=== PATIENT | male | born 1940 | race Hispanic/Latino ===

== ENCOUNTER 2018-11-03 17:23 | Emergency (ER) | payer MEDICARE ==
--- NOTE | 2018-11-03 19:36 | Emergency Department Report ---
ED General Adult HPI - General Chief complaint: Syncope Stated complaint: SYNCOPE Time Seen by Provider: 11/03/18 19:27 Source: patient, family, EMS (ems notes not available at time of chart dictation), RN notes reviewed Mode of arrival: Stretcher Limitations: Other (the patient does not remember what happened) - History of Present Illness Initial comments: This is a 78-year-old gentleman. The patient is not known to this provider previously. He recently moved here from [place]. He has followed with the [facility] in the past. He does not have a local primary care doctor. 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 The patient is brought to the hospital by EMS and his . As per his , they were driving, and the patient was in his usual state of health, when he lost consciousness, became unresponsive for 20 minutes. This is never happened before. The patient denies physical pain. He does not recall the event. The patient versus compliance with his medications. He is not sure if he's had any medication changes, but he does not believe so. He denies headache, neck pain, chest pain, abdominal pain, shortness of breath, hematemesis, bright red blood per rectum and urinary symptoms. He is back to his baseline. He has no complaints at this time. -: Sudden, minutes(s) (20) Consistency: now resolved Improves with: none Worsens with: none - Related Data Allergies Allergy/AdvReac Type Severity Reaction Status Date / Time No Known Allergies Allergy Unverified 11/03/18 19:06 ED Review of Systems ROS: Stated complaint: SYNCOPE Other details as noted in HPI Constitutional: denies: fever Eyes: denies: eye discharge ENT: denies: epistaxis Respiratory: denies: cough Cardiovascular: syncope. denies: chest pain Gastrointestinal: denies: abdominal pain, hematemesis, melena, hematochezia Musculoskeletal: denies: back pain, arthralgia Skin: lesions (chronic lesions noted on the lower extremities, not a new, worsening or different) Neurological: denies: headache, numbness, paresthesias ED Past Medical Hx - Past Medical History Previous Medical History?: Yes Hx CVA: Yes Hx Diabetes: Yes Hx Seizures: Yes Hx Kidney Stones: Yes Additional medical history: Skin Cancer, shingles, prostate, erectile dysfunction, hearing impairment, high cholesterol - Surgical History Past Surgical History?: Yes Additional Surgical History: partial right second toe amputation, skin cancer removal - Social History Smoking Status: Never Smoker Substance Use Type: None ED Physical Exam - General Limitations: No Limitations General appearance: alert, in no apparent distress - Head Head exam: Present: atraumatic, normocephalic - Eye Eye exam: Present: normal appearance, EOMI, other (visual acuity intact to finger counting, color perception, reading at a close distance). Absent: nystagmus - ENT ENT exam: Present: normal exam, normal orophraynx, mucous membranes moist, normal external ear exam - Neck Neck exam: Present: normal inspection, full ROM. Absent: tenderness, meningismus - Respiratory Respiratory exam: Present: normal lung sounds bilaterally. Absent: respiratory distress - Cardiovascular Cardiovascular Exam: Present: regular rate, normal rhythm, normal heart sounds. Absent: bradycardia, tachycardia, irregular rhythm, systolic murmur, diastolic murmur, rubs, gallop - GI/Abdominal GI/Abdominal exam: Present: soft. Absent: distended, tenderness, guarding, rebound, rigid, pulsatile mass - Rectal Rectal exam: Present: deferred - Extremities Exam Extremities exam: Present: normal inspection (Extraocular movements intact. Tongue midline. No facial droop. Facial sensation intact to light touch in the V1, V2, V3 distribution bilaterally. 5 and 5 strength in 4 extremities.. Sensation is intact to light touch in 4 extremities.), full ROM (chronic venous stasis changes noted), pedal edema, other (2+ pulses noted in the bilateral upper, lower extremities. Compartments soft. No long bony tenderness. The pelvis is stable.). Absent: calf tenderness - Back Exam Back exam: Present: normal inspection, full ROM. Absent: tenderness, CVA tenderness (R), CVA tenderness (L), paraspinal tenderness, vertebral tenderness - Neurological Exam Neurological exam: Present: alert, oriented X3, other (Extraocular movements intact. Tongue midline. No facial droop. Facial sensation intact to light touch in the V1, V2, V3 distribution bilaterally. 5 and 5 strength in 4 extremities.. Sensation is intact to light touch in 4 extremities.). Absent: motor sensory deficit - Psychiatric Psychiatric exam: Present: anxious - Skin Skin exam: Present: warm, dry ED Course Vital Signs 11/03/18 11/03/18 11/03/18 18:08 19:00 22:01 Temperature 97.6 F 98 F Pulse Rate 65 86 65 Respiratory 16 14 13 Rate Blood Pressure 122/71 130/73 Blood Pressure 141/79 [Left] O2 Sat by Pulse 100 98 Oximetry 11/03/18 11/04/18 23:01 00:01 Temperature Pulse Rate 61 67 Respiratory 13 14 Rate Blood Pressure 134/73 134/73 Blood Pressure [Left] O2 Sat by Pulse 98 97 Oximetry - Reevaluation(s) Reevaluation #1: 11/03/18 19:59 Differential diagnosis, including not limited to: Orthostasis, vagal event, structural cardiac disease, intracranial hemorrhage, electrolyte derangement, thyroid derangement, pneumonia, urinary tract infection, intra-abdominal hemorrhage Assessment and plan: 78-year-old man, not tachycardic, not hypoxic, on systemic anticoagulation, with painless loss of consciousness for 20 minutes, now resolved. The patient is clinically sober, afebrile, with reassuring vital signs, with a Vish Coma Scale of 15, with an NIH score of 0. He has no physical pain at this time. We will obtain screening laboratory studies, CT scan of the brain, CT scan of the abdomen and pelvis, x-ray of the chest, urinalysis, placed the patient on a cafeteria monitor, and observed. We will reassess once his data points have resulted. Reevaluation #2: 11/04/18 02:32 The patient has been reassessed multiple times while here in the department. His vital signs have remained unremarkable. His neurologic examination has remained unremarkable and unchanged. Objective laboratory testing unremarkable. CT scan of the brain, x-ray of the chest, CT scan of the abdomen and pelvis negative for acute significant disease, multiple incidental nonemergent findings noted. The patient has been observed here for over 9 hours without clinical decompensation or recurrent event. His vital signs have been stable. I had an extensive discussion with both the patient, and his significant other. The p atient and family endorse a strong desire to be discharged, and they endorse a desire to closely follow up with an outpatient physician. They indicate that they are reliable to follow-up. Patient and family concerned about risks of hospitalization, including delirium, slip and fall, DVT, hospital-acquired diarrhea. We discussed risks, benefits and alternatives of hospitalization versus discharge and close outpatient follow-up. Through shared decision making, we agreed to discharge the patient, and he indicates he will closely follow up as an outpatient. He was given copies of his CT scan reports, laboratory studies, and EKG. He states he is reliable to closely follow-up ED Medical Decision Making - Lab Data Result diagrams: 11/03/18 19:39 11/03/18 19:39 Vital Signs 11/03/18 11/03/18 18:08 19:00 Temperature 97.6 F 98 F Pulse Rate 65 86 Respiratory 16 14 Rate Blood Pressure 122/71 Blood Pressure 141/79 [Left] O2 Sat by Pulse 100 Oximetry Sodium: 138 Potassium: 5 Chloride: 98 CO2: 27 BUN: 21 Creatinine: 1.3 Glucose: 123. Lab Results 11/03/18 11/03/18 11/03/18 Range/Units 19:39 19:39 19:39 WBC 12.9 H (4.5-11.0) K/mm3 RBC 4.39 (3.65-5.03) M/mm3 Hgb 14.1 (11.8-15.2) gm/dl Hct 41.6 (35.5-45.6) % MCV 95 H (84-94) fl MCH 32 (28-32) pg MCHC 34 (32-34) % RDW 12.5 L (13.2-15.2) % Plt Count 221 (140-440) K/mm3 Lymph % (Auto) 13.5 (13.4-35.0) % [place] % (Auto) 4.4 (0.0-7.3) % Eos % (Auto) 0.5 (0.0-4.3) % Baso % (Auto) 0.3 (0.0-1.8) % Lymph # 1.7 (1.2-5.4) K/mm3 [place] # 0.6 (0.0-0.8) K/mm3 Eos # 0.1 (0.0-0.4) K/mm3 Baso # 0.0 (0.0-0.1) K/mm3 Seg Neutrophils % 81.3 H (40.0-70.0) % Seg Neutrophils # 10.5 H (1.8-7.7) K/mm3 Sodium 137 (137-145) mmol/L Potassium 3.7 (3.6-5.0) mmol/L Chloride 99.3 (98-107) mmol/L Carbon Dioxide 27 (22-30) mmol/L Anion Gap 14 mmol/L BUN 21 H (9-20) mg/dL Creatinine 1.3 (0.8-1.5) mg/dL Estimated GFR 54 ml/min BUN/Creatinine Ratio 16 % Glucose 123 H (75-100) mg/dL Calcium 9.1 (8.4-10.2) mg/dL Magnesium 1.90 (1.7-2.3) mg/dL Total Bilirubin 0.30 (0.1-1.2) mg/dL AST 16 (5-40) units/L ALT 15 (7-56) units/L Alkaline Phosphatase 137 H (35-129) units/L Total Creatine Kinase 69 (55-170) units/L Troponin T 0.010 (0.00-0.029) ng/mL Total Protein 6.7 (6.3-8.2) g/dL Albumin 3.6 L (3.9-5) g/dL Albumin/Globulin Ratio 1.2 % TSH (0.270-4.200) mlU/mL Free T4 1.12 (0.76-1.46) ng/dL 11/03/18 Range/Units 19:39 WBC (4.5-11.0) K/mm3 RBC (3.65-5.03) M/mm3 Hgb (11.8-15.2) gm/dl Hct (35.5-45.6) % MCV (84-94) fl MCH (28-32) pg MCHC (32-34) % RDW (13.2-15.2) % Plt Count (140-440) K/mm3 Lymph % (Auto) (13.4-35.0) % [place] % (Auto) (0.0-7.3) % Eos % (Auto) (0.0-4.3) % Baso % (Auto) (0.0-1.8) % Lymph # (1.2-5.4) K/mm3 [place] # (0.0-0.8) K/mm3 Eos # (0.0-0.4) K/mm3 Baso # (0.0-0.1) K/mm3 Seg Neutrophils % (40.0-70.0) % Seg Neutrophils # (1.8-7.7) K/mm3 Sodium (137-145) mmol/L Potassium (3.6-5.0) mmol/L Chloride (98-107) mmol/L Carbon Dioxide (22-30) mmol/L Anion Gap mmol/L BUN (9-20) mg/dL Creatinine (0.8-1.5) mg/dL Estimated GFR ml/min BUN/Creatinine Ratio % Glucose (75-100) mg/dL Calcium (8.4-10.2) mg/dL Magnesium (1.7-2.3) mg/dL Total Bilirubin (0.1-1.2) mg/dL AST (5-40) units/L ALT (7-56) units/L Alkaline Phosphatase (35-129) units/L Total Creatine Kinase (55-170) units/L Troponin T (0.00-0.029) ng/mL Total Protein (6.3-8.2) g/dL Albumin (3.9-5) g/dL Albumin/Globulin Ratio % TSH 3.020 (0.270-4.200) mlU/mL Free T4 (0.76-1.46) ng/dL Lab Results 11/03/18 11/03/18 11/03/18 Range/Units 19:39 19:39 19:39 WBC 12.9 H (4.5-11.0) K/mm3 RBC 4.39 (3.65-5.03) M/mm3 Hgb 14.1 (11.8-15.2) gm/dl Hct 41.6 (35.5-45.6) % MCV 95 H (84-94) fl MCH 32 (28-32) pg MCHC 34 (32-34) % RDW 12.5 L (13.2-15.2) % Plt Count 221 (140-440) K/mm3 Lymph % (Auto) 13.5 (13.4-35.0) % [place] % (Auto) 4.4 (0.0-7.3) % Eos % (Auto) 0.5 (0.0-4.3) % Baso % (Auto) 0.3 (0.0-1.8) % Lymph # 1.7 (1.2-5.4) K/mm3 [place] # 0.6 (0.0-0.8) K/mm3 Eos # 0.1 (0.0-0.4) K/mm3 Baso # 0.0 (0.0-0.1) K/mm3 Seg Neutrophils % 81.3 H (40.0-70.0) % Seg Neutrophils # 10.5 H (1.8-7.7) K/mm3 Sodium 137 (137-145) mmol/L Potassium 3.7 (3.6-5.0) mmol/L Chloride 99.3 (98-107) mmol/L Carbon Dioxide 27 (22-30) mmol/L Anion Gap 14 mmol/L BUN 21 H (9-20) mg/dL Creatinine 1.3 (0.8-1.5) mg/dL Estimated GFR 54 ml/min BUN/Creatinine Ratio 16 % Glucose 123 H (75-100) mg/dL Calcium 9.1 (8.4-10.2) mg/dL Magnesium 1.90 (1.7-2.3) mg/dL Total Bilirubin 0.30 (0.1-1.2) mg/dL AST 16 (5-40) units/L ALT 15 (7-56) units/L Alkaline Phosphatase 137 H (35-129) units/L Total Creatine Kinase 69 (55-170) units/L Troponin T 0.010 (0.00-0.029) ng/mL Total Protein 6.7 (6.3-8.2) g/dL Albumin 3.6 L (3.9-5) g/dL Albumin/Globulin Ratio 1.2 % TSH (0.270-4.200) mlU/mL Free T4 1.12 (0.76-1.46) ng/dL 11/03/18 Range/Units 19:39 WBC (4.5-11.0) K/mm3 RBC (3.65-5.03) M/mm3 Hgb (11.8-15.2) gm/dl Hct (35.5-45.6) % MCV (84-94) fl MCH (28-32) pg MCHC (32-34) % RDW (13.2-15.2) % Plt Count (140-440) K/mm3 Lymph % (Auto) (13.4-35.0) % [place] % (Auto) (0.0-7.3) % Eos % (Auto) (0.0-4.3) % Baso % (Auto) (0.0-1.8) % Lymph # (1.2-5.4) K/mm3 [place] # (0.0-0.8) K/mm3 Eos # (0.0-0.4) K/mm3 Baso # (0.0-0.1) K/mm3 Seg Neutrophils % (40.0-70.0) % Seg Neutrophils # (1.8-7.7) K/mm3 Sodium (137-145) mmol/L Potassium (3.6-5.0) mmol/L Chloride (98-107) mmol/L Carbon Dioxide (22-30) mmol/L Anion Gap mmol/L BUN (9-20) mg/dL Creatinine (0.8-1.5) mg/dL Estimated GFR ml/min BUN/Creatinine Ratio % Glucose (75-100) mg/dL Calcium (8.4-10.2) mg/dL Magnesium (1.7-2.3) mg/dL Total Bilirubin (0.1-1.2) mg/dL AST (5-40) units/L ALT (7-56) units/L Alkaline Phosphatase (35-129) units/L Total Creatine Kinase (55-170) units/L Troponin T (0.00-0.029) ng/mL Total Protein (6.3-8.2) g/dL Albumin (3.9-5) g/dL Albumin/Globulin Ratio % TSH 3.020 (0.270-4.200) mlU/mL Free T4 (0.76-1.46) ng/dL - EKG Data -: EKG Interpreted by Ok EKG shows normal: sinus rhythm Rate: normal - EKG Data When compared to previous EKG there are: previous EKG unavailable 11/03/18 20:01 sinus 66 bpm, not a stemi KS interval prolonged, 274 ms. QTC prolonged, 530 ms. Borderline left ventricular hypertrophy. This is an abnormal EKG. There is no prior for comparison. This EKG is not consistent with ST elevation myocardial infarction. - Radiology Data Radiology results: pending, report reviewed, image reviewed Noncontrast CT scan of the brain is negative for acute disease. CT scan of the abdomen and pelvis negative for acute disease/hematoma. Multiple incidental findings noted. X-ray of the chest negative for acute disease. Print Report Referring Physician: DEDE TELLO Patient Name: RAHEEM CORNELL Date of : 1940 Sex: Male Report Date: 2018-11-03 Report Status: Finalized Findings [address] [address] XRay Report Signed Patient: RAHEEM CORNELL MR#: [id number] : 1940 Acct:[id number] Age/Sex: 78 / M ADM Date: 11/03/18 Loc: ED Attending Dr: Ordering Physician: DEDE TELLO MD Date of Service: 11/03/18 Procedure(s): XR chest 1V ap Accession Number(s): [id number] cc: DEDE TELLO MD Fluoro Time In Minutes: PROCEDURE: XR CHEST 1V AP TECHNIQUE: Chest radiograph single view. HISTORY: syncopwe FINDINGS: Single frontal view of the chest was acquired. The heart is mildly large. There is no evidence of congestive heart failure. There is no consolidative infiltrate. IMPRESSION: The heart is mildly large. Otherwise, no active disease in the chest This document is electronically signed by Glen Olmedo MD., November 03 2018 08:23:16 PM ET Transcribed By: ROSEMARY Dictated By: GLEN OLMEDO MD Electronically Authenticated By: GLEN OLMEDO MD Signed Date/Time: 11/03/182148 DD/ 19 TD/TT: 11/03/182019 Print Report Referring Physician: DEDE TELLO Patient Name: RAHEEM CORNELL Date of : 1940 Sex: Male Report Date: 2018-11-03 Report Status: Finalized Findings [address] [address] XRay Report Signed Patient: RAHEEM CORNELL MR#: [id number] : 1940 Acct:[id number] Age/Sex: 78 / M ADM Date: 11/03/18 Loc: ED Attending Dr: Ordering Physician: DEDE TELLO MD Date of Service: 11/03/18 Procedure(s): XR chest 1V ap Accession Number(s): [id number] cc: DEDE TELLO MD Fluoro Time In Minutes: PROCEDURE: XR CHEST 1V AP TECHNIQUE: Chest radiograph single view. HISTORY: syncopwe FINDINGS: Single frontal view of the chest was acquired. The heart is mildly large. There is no evidence of congestive heart failure. There is no consolidative infiltrate. IMPRESSION: The heart is mildly large. Otherwise, no active disease in the chest This document is electronically signed by Glen Olmedo MD., November 03 2018 08:23:16 PM ET Transcribed By: ROSEMARY Dictated By: GLEN OLMEDO MD Electronically Authenticated By: GLEN OLMEDO MD Signed Date/Time: 11/03/182148 DD/ 19 TD/TT: 11/03/182019 Print Report Referring Physician: DEDE TELLO Patient Name: RAHEEM CORNELL Date of : 1940 Sex: Male Report Date: 2018-11-03 Report Status: Finalized Findings [facility] [address] [place] [address] XRay Report Signed Patient: RAHEEM CORNELL MR#: [id number] : 1940 Acct:[id number] Age/Sex: 78 / M ADM Date: 11/03/18 Loc: ED Attending Dr: Ordering Physician: DEDE TELLO MD Date of Service: 11/03/18 Procedure(s): XR chest 1V ap Accession Number(s): [id number] cc: DEDE TELLO MD Fluoro Time In Minutes: PROCEDURE: XR CHEST 1V AP TECHNIQUE: Chest radiograph single view. HISTORY: syncopwe FINDINGS: Single frontal view of the chest was acquired. The heart is mildly large. There is no evidence of congestive heart failure. There is no consolidative infiltrate. IMPRESSION: The heart is mildly large. Otherwise, no active disease in the chest This document is electronically signed by Glen Olmedo MD., November 03 2018 0 8:23:16 PM ET Transcribed By: ROSEMARY Dictated By: GLEN OLMEDO MD Electronically Authenticated By: GLEN OLMEDO MD Signed Date/Time: 11/03/182148 DD/ 19 TD/TT: 11/03/182019 Critical care attestation.: If time is entered above; I have spent that time in minutes in the direct care of this critically ill patient, excluding procedure time. ED Disposition Clinical Impression: History of syncope Disposition: DC-01 TO HOME OR SELFCARE Is pt being admited?: No Does the pt Need Aspirin: No Condition: Stable Additional Instructions: Do not drive or operate motor vehicles next 6 months, or until cleared by a primary care doctor or grout pump operator. Follow up with a primary care doctor or grout pump operator within the next 3-5 days. Contact any of the listed local card iology practices to arrange close outpatient follow-up. When contacting the cardiology groups, please inform the office staff that he was seen in the emergency room for syncope/loss of consciousness, and close/urgent outpatient follow-up is recommended and advised. Please continue current outpatient medications. CT scan of the abdomen and pelvis did not demonstrate any acute or emergent condition that would require hospitalization, but it did demonstrate multiple nonemergent incidental findings which should be followed up by her primary care doctor within the next month. Please have your primary care doctor reviewed the CT scan report that you were provided, and have them follow up on the nonemergent incidental findings. Please return to the emergency room right away with new, worsening or different symptoms, or symptoms not present on the initial emergency room evaluation. Referrals: DARI GONZALEZ MD [Staff Physician] - 3-5 Days EDIHT MANCERA MD [Staff Physician] - 3-5 Days [facility] [Provider Group] - 3-5 Days [facility] [Provider Group] - 3-5 Days
--- NOTE | 2018-11-03 21:49 | XRay Report ---
PROCEDURE: XR CHEST 1V AP TECHNIQUE: Chest radiograph single view. HISTORY: syncopwe FINDINGS: Single frontal view of the chest was acquired. The heart is mildly large. There is no evide nce of congestive heart failure. There is no consolidative infiltrate. IMPRESSION: The heart is mildly large. Otherwise, no active disease in the chest This document is electronically signed by Glen Olmedo MD., November 03 2018 08:23:16 PM ET
--- NOTE | 2018-11-04 01:49 | Cat Scan Report ---
PROCEDURE: CT HEAD/BRAIN WO CON TECHNIQUE: Computerized tomography of the head was performed without contrast material. CT DOSE LENGTH PRODUCT: 920.5 mGycm HISTORY: Syncope COMPARISONS: None . FINDINGS: Brain: There is no evidence of intracranial hemorrhage. No parenchymal hemorrhage is seen. No mass lesions or mass effect is identified. No abnormal extra-axial fluid collections or masses are seen. There is some decreased density seen in the periventricular white matter without mass effect. This i s fairly symmetric and does not exhibit any mass effect consistent with gliosis probably on the basis of microvascular disease or white matter changes of aging. Ventricles: The ventricles, sulcal pattern and fissures are prominent consistent with atrophy. Bone Windows: No evidence of fracture. Paranasal sinuses: Visualized portions are clear.. Mastoid air cells: Clear. IMPRESSION: There is evidence of atrophy and gliosis. No acute intracranial abnormalities are seen. . This document is electronically signed by Paul Murguia MD., November 03 2018 09:11:09 PM ET
--- NOTE | 2018-11-04 01:49 | Cat Scan Report ---
PROCEDURE: CT ABDOMEN PELVIS WO CON TECHNIQUE: Computerized axial tomography of the abdomen and pelvis was performed without intravenous contrast. This study is performed without intravascular contrast material and its sensitivity for ab dominal and pelvic pathology, including neoplasms, inflammation, abscess, free fluid, thrombosis, art erial dissection and infarction, is reduced compared with a contrast enhanced study. CT DOSE LENGTH PRODUCT: 1616.9 mGycm HISTORY: syncope on pradaxa ? rph COMPARISONS: None . FINDINGS: Lower Lung gan: Calcifications are seen in the hernandez of the coronary arteries indicating atherosc lerotic disease. There may also be coronary artery stents in place. Correlation with prior procedural history recommended. Minimal dependent atelectasis visualized. Lung bases otherwise are clear. Upper Abdomen: There is a 2.6 x 2.6 cm heterogeneous mildly irregular shape low density nodule in th e right lobe of the liver superiorly laterally. This is visualized on image 26 series 2. There is als o a nonspecific 6 mm low-density nodule in the right lobe of the liver posteriorly laterally. The porsha er is otherwise unremarkable. Gallbladder showed no abnormalities. The adrenal glands, the pancreas a nd spleen are unremarkable. Kidneys, Ureters and Urinary bladder: There is a nonobstructing 7.5 mm calculus in the lower third o f the right kidney. There is also a nonobstructing 3 mm calculus in the midportion of the right kidne y. No other renal calculi are seen on the right or left. Extrarenal pelvis of the kidneys present fausto aterally, normal variant. Ureters and urinary bladder are unremarkable. Retroperitoneum: Atherosclerotic changes are seen in the abdominal aorta. No aneurysm is visualized. Nonspecific subcentimeter lymph nodes are seen in the retroperitoneum. No pathologically enlarged ly mph nodes are identified. Bowel: No focal bowel loop abnormalities are seen. There is no evidence of bowel obstruction ascites or free intraperitoneal gas. Normal-appearing appendix is seen in the right lower quadrant. Small um bilical hernia containing adipose tissue visualized. No herniated loops of bowel are seen. Reproductive organs: There is nonspecific diffuse prostate enlargement. Other: No acute bone abnormalities are seen. There is degenerative mild grade 1 spondylolisthesis L4 in relation to L5. No evidence of spondylolysis. There is [id number] articulation the posterior spi nous process of L3 on L4 which can be a cause of back pain. IMPRESSION: 2.6 cm heterogeneous irregular shaped low-density nodule right lobe of the liver superolaterally. Dynamic contrast enhanced CT scan or MRI of the liver recommended for further characterization. Atherosclerosis coronary arteries. Coronary artery stents may be in place. Nonobstructing calculi right kidney. No hydronephrosis or ureteral calculi are visualized. Mild degenerative grade 1 spondylolisthesis L4 in relation L5 as described. No evidence of spondyloly sis. This document is electronically signed by Paul Murguia MD., November 03 2018 09:34:21 PM ET
[2018-11-04 01:59] LABS: Calcium 9.1 mg/dL (8.4-10.2)
[2018-11-04 02:00] LABS: Albumin 3.6 g/dL (3.9-5)
[2018-11-04 02:05] LABS: Basophils % (Auto) 0.3 % (0.0-1.8); Eosinophils % (Auto) 0.5 % (0.0-4.3); Hematocrit 41.6 % (35.5-45.6); Hemoglobin 14.1 gm/dl (11.8-15.2); Lymphocytes # (Auto) 1.7 K/mm3 (1.2-5.4); Lymphocytes % (Auto) 13.5 % (13.4-35.0); Mean Corpuscular HGB Conc 34 % (32-34); Mean Corpuscular Volume 95 fl (84-94); Monocytes # (Auto) 0.6 K/mm3 (0.0-0.8); Monocytes % (Auto) 4.4 % (0.0-7.3); Platelet Count 221 K/mm3 (140-440); Red Blood Count 4.39 M/mm3 (3.65-5.03); Red Cell Distribution Width 12.5 % (13.2-15.2)
[2018-11-04 02:06] LABS: Eosinophils # (Auto) 0.1 K/mm3 (0.0-0.4)
[2018-11-04] MEDS ORDERED: NORVASC PO ONE (03:15)
[2018-11-04] MEDS ORDERED: NORVASC ONE (03:24)
[2018-11-04 04:23] LABS: INR 1.03 (0.87-1.13)
[2018-11-04] MEDS ORDERED: COZAAR PO ONE (04:55)
[2018-11-04] MEDS ORDERED: COZAAR ONE (04:58)
[2018-11-04 05:43] VITALS: BP 159/83
[2018-11-05 01:10] LABS: Bilirubin,Urine Negative (Negative); Blood,Urine Small (Negative); Color,Urine Yellow (Yellow); Protein,Urine <15 mg/dL mg/dL (Negative); Urobilinogen,Urine < 2.0 mg/dL (<2.0)
== END 2018-11-04 05:37 | disposition home or self-care (01) ==
LOC: EDBD 17:23 → ED 17:23
DX: R55 Syncope and collapse (principal); L98.9 Disorder of the skin and subcutaneous tissue, unspecified; I10 Essential (primary) hypertension; E11.9 Type 2 diabetes mellitus without complications; E78.00 Pure hypercholesterolemia, unspecified; Z85.828 Personal history of other malignant neoplasm of skin; Z89.421 Acquired absence of other right toe(s); Z87.442 Personal history of urinary calculi
CPT/HCPCS: 36415; 70450; 71045; 74176; 80053; 81001; 82550; 83735; 84439; 84443; 84484; 85025; 85610; 93005; 93010